=== PATIENT | male | born 1960 | race Caucasian/White ===

== ENCOUNTER 2022-02-12 06:25 | Day surgery (SDC) | payer OTHER ==
[~2022-02-12] VITALS: Ht 179.1 cm; Wt 121.0 kg
[~2022-02-12 06:25] MED LIST: ASPI-630 PO; ATOR80TA72 PO; BUDE10.22 IH; EPLE25TA4 PO; FURO40TA4 PO; HYDROmorphone 2 MG/ML INJ. IVP PRN; IBUP-1027 PO; IV RINGERS,LACTATED 1000ML 1,000 ML IV SCH; LISI20TA18 PO; MELO7.5T29 PO; METF500T16 PO; METO200T46 PO; MORPHINE SULFATE 2 MG/ML INJ. IVP PRN; PROCHLORPERAZINE 10 MG/2 ML VIAL. IVP PRN; ceFAZolin SODIUM 3 GM in IV DEXTROSE 5% 100ML 100 ML IV PRN; fentaNYL PF VIAL 100 MCG/2 ML VIAL IVP PRN
[2022-02-12] MEDS ORDERED: BUPIVACAINE MPF 0.25% 30 ML VIAL. ONE (06:58)
[2022-02-12 07:07] VITALS: BP 119/61
--- NOTE | 2022-02-12 07:10 | PDOC1 ---
History and Physical Date of Admission Date of Admission DATE: 02/12/22 TIME: 07:09 Identification/Chief Complaint Chief Complaint Right foot pain Source Source: Patient History of Present Illness History of Present Illness Mr Horta is a 61yo male with PMHx HTN, HLD, prediabetes, smokeless tobacco user, CAD s/p CABG 2017, chronic systolic CHF s/p AICD 2018 who comes to outpatient surgery for surgical resection of soft tissue mass right foot. Pain noted hard nodule on his right lateral dorsum of the and is been bothering him since November 2021 has had trouble ambulating put on shoes. No recent hospitalizations or sick contacts. He has an AICD device check within the past months being paced 20 to 22% of the time. His only other complaint is that since his bypass in 2017 he has been diagnosed with asthma and he does require Symbicort. He also notes that he had a recent hemoglobin A1c was 5.7 was told he is prediabetic started on metformin therapy. Past Medical History Cardiovascular: CAD (Stenting 2000 and CABG in 2017), CHF, HTN, Hyperlipidemia Pulmonary: Asthma Past Surgical History Past Surgical History: Pacemaker (AICD 2018 - medtronic), CABG (2017), Colon Resection (Perforated diverticulitis 1988) Family History Family History: Coronary Artery Disease Social History Smoke: # pack years (Stopped smoking in 2000 but still uses smokeless tobacco daily up to a can) ALCOHOL: none (Quit in 2000) Drugs: None Current Medications Current Medications Current Medications Fentanyl Citrate (Fentanyl 2ml Vial) 25 mcg PRN Q5MIN PRN IVP MILD PAIN 1-3; Start 02/12/22 at 06:00; Stop 02/13/22 at 05:59 Fentanyl Citrate (Fentanyl 2ml Vial) 50 mcg PRN Q5MIN PRN IVP MODERATE PAIN 4- 6; Start 02/12/22 at 06:00; Stop 02/13/22 at 05:59 Morphine Sulfate (Morphine Sulfate) 1 mg PRN Q10MIN PRN IVP SEVERE PAIN 7-10; Start 02/12/22 at 06:00; Stop 02/13/22 at 05:59 Ringer's Solution 1,000 ml @ 30 mls/hr Q24H IV ; Start 02/12/22 at 06:00; Stop 02/12/22 at 17:59 Hydromorphone HCl (Dilaudid) 0.5 mg PRN Q10MIN PRN IVP SEVERE PAIN 7-10, 2nd CHOICE; Start 02/12/22 at 06:00; Stop 02/13/22 at 05:59 Prochlorperazine Edisylate (Compazine) 5 mg PACU PRN PRN IVP NAUSEA, MRX1; Start 02/12/22 at 06:00; Stop 02/13/22 at 05:59 Cefazolin Sodium 3 gm/Dextrose 100 ml @ 200 mls/hr 1X PREOP PRN IV PRIOR TO PROCEDURE; Start 02/12/22 at 06:00; Stop 02/12/22 at 15:00 Bupivacaine HCl (Sensorcaine Mpf 0.25%) 30 ml STK-MED ONCE .ROUTE ; Start 02/12/22 at 06:58; Stop 02/12/22 at 06:58; Status DC Active Scripts Active Reported Ibuprofen 400 Mg Tablet 400 Mg PO PRN Q6HRS PRN Aspirin 81 Mg Tab.chew 81 Mg PO DAILY Eplerenone 25 Mg Tablet 25 Mg PO DAILY Metoprolol Succinate ( Xl ) (Metoprolol Succinate) 200 Mg Tab.er.24h 200 Mg PO BID Atorvastatin Calcium 80 Mg Tablet 80 Mg PO QHS Lisinopril 20 Mg Tablet 20 Mg PO DAILY Furosemide 40 Mg Tablet 40 Mg PO DAILY Metformin Hcl 500 Mg Tablet 500 Mg PO BIDWMEALS Meloxicam 7.5 Mg Tablet 7.5 Mg PO DAILY Symbicort 80-4.5 Mcg Inhaler (Budesonide/Formoterol Fumarate) 10.2 Gm Hfa.aer.ad 1 Puff IH BID Allergies Allergies: Coded Allergies: Penicillins (Verified Allergy, Intermediate, childhood, unknown reaction- tolerates cephalosporins, 02/12/22) bee venom protein (honey bee) (Verified Allergy, Intermediate, Swelling, 02/12/22) ROS General: No: Chills, Night Sweats, Fatigue, Malaise, Appetite, Other PSYCHOLOGICAL ROS: No: Anxiety, Behavioral Disorder, Concentration difficultie, Decreased libido, Depression, Disorientation, Hallucinations, Hostility, Irritablity, Memory difficulties, Mood Swings, Obsessive thoughts, Physical abuse, Sexual abuse, Sleep disturbances, Suicidal ideation, Other Eyes: No Blurry vision, No Decreased vision, No Double vision, No Dry eyes, No Excessive tearing, No Eye Pain, No Itchy Eyes, No Loss of vision, No Photophobia, No Scotomata, No Uses contacts, No Uses glasses, No Other HEENT: No: Heacaches, Visual Changes, Hearing change, Nasal congestion, Nasal discharge, Oral lesions, Sinus pain, Sore Throat, Epistaxis, Sneezing, Snoring, Tinnitus, Vertigo, Vocal changes, Other ALLERGY AND IMMUNOLOGY: No: Hives, Insect Bite Sensitivity, Itchy/Watery Eyes, Nasal Congestion, Post Nasal Drip, Seasonal Allergies, Other Hematological and Lymphatic: No: Bleeding Problems, Blood Clots, Blood Transfusions, Brusing, Night Sweats, Pallor, Swollen Lymph Nodes, Other ENDOCRINE: No: Breast Changes, Galactorrhea, Hair Pattern Changes, Hot Flashes, Malaise/lethargy, Mood Swings, Palpitations, Polydipsia/polyuria, Skin Changes, Temperature Intolerance, Unexpected Weight Changes, Other Breast: No New/Changing Breast Lumps, No Nipple changes, No Nipple discharge, No Other Respiratory: No: Cough, Hemoptysis, Orthopnea, Pleuritic Pain, Shortness of breath, SOB with excertion, Sputum Changes, Stridor, Tachypnea, Wheezing, Other Cardiovascular: No Chest Pain, No Palpitations, No Orthopnea, No Paroxysmal Noc. Dyspnea, No Edema, No Lt Headedness, No Other Gastrointestinal: No Nausea, No Vomiting, No Abdominal Pain, No Diarrhea, No Constipation, No Melena, No Hematochezia, No Other Genitourinary: No Dysuria, No Frequency, No Incontinence, No Hematuria, No Retention, No Discharge, No Urgency, No Pain, No Flank Pain, No Other, No , No , No , No , No , No , No Musculoskeletal: Yes Gait Disturbance; No Joint Pain, No Joint Stiffness, No Joint Swelling, No Muscle Pain, No Muscular Weakness, No Pain In:, No Swelling In:, No Other Neurological: No Behavorial Changes, No Bowel/Bladder ControlChng, No Confusion, No Dizziness, No Gait Disturbance, No Headaches, No Impaired Coord/balance, No Memory Loss, No Numbness/Tingling, No Seizures, No Speech Problems, No Tremors, No Visual Changes, No Weakness, No Other Skin: No Dry Skin, No Eczema, No Hair Changes, No Lumps, No Mole Changes, No Mottling, No Nail Changes, No Pruritus, No Rash, No Skin Lesion Changes, No Other, No Acne Physical Exam General: Alert, Oriented X3, Cooperative, No acute distress HEENT: Atraumatic, PERRLA, EOMI, Mucous membr. moist/pink Lungs: Clear to auscultation, Normal air movement Heart: S1S2, RRR, no thrills, no rubs, no gallops, no murmurs Abdomen: Normal bowel sounds, Soft, No tenderness, No hepatosplenomegaly, No masses Rectal Exam: not examined Extremities: No clubbing, No cyanosis, No edema, Normal pulses, Other (Right lateral 0.5 0.5 cm solid nodule on bilateral dorsal feet) Skin: No rashes, No breakdown, No significant lesion Neuro: Normal gait, Normal speech, Strength at 5/5 X4 ext, Normal tone, Sensation intact, Cranial nerves 3-12 NL, Reflexes 2+ Psych/Mental Status: Mental status NL, Mood NL Vitals Vitals Vital Signs Date Time Temp Pulse Resp B/P (MAP) Pulse Ox O2 Delivery O2 Flow Rate FiO2 02/12/22 07:07 97.8 69 20 96 97.8 02/12/22 07:05 119/61 Room Air VTE Prophylaxis Ordered VTE Prophylaxis Devices: Yes VTE Pharmacological Prophylaxi: No Assessment/Plan Assessment/Plan Right foot lesion -present significant pain and dysfunction. No further testing prior to planned procedure. HTN - on toprol and lisinopril HLD - statin Prediabetes - on metformin Smokeless tobacco user -counseled on cessation CAD s/p CABG 2017 - stable on meds, no recent hospitalizations Chronic systolic CHF s/p AICD 2018 -normal device check compliant with his meds. Asthma - new diagnosis in 2018 -takes Symbicort at home FEN - NPO PPX - SCDs FULL CODE Dispo -outpatient surgery Can call [phone] if patient requires admission to the hospital Justifications for Admission Other Justification VAISHALI BENEDICT MD February 12, 2022 07:10
[2022-02-12] MEDS ORDERED: FLUT9.9S NS (07:12)
[2022-02-12] MEDS ORDERED: INSULIN LISPRO 100 UNIT/ML 3ML VIAL for OP,RR ONLY. SQ PRN (07:15)
[2022-02-12] MEDS ORDERED: fentaNYL PF VIAL 100 MCG/2 ML VIAL ONE ×2 (07:18→08:43)
[2022-02-12] MEDS ORDERED: PROPOFOL 10 MG/ML (20ML) VIAL. IV ONE (07:19)
[2022-02-12] MEDS ORDERED: DEXAMETHASONE SOD PHOS 4 MG/ML VIAL ONE (07:19)
[2022-02-12] MEDS ORDERED: MIDAZOLAM HCL/PF 2 MG/2 ML VIAL. ONE (07:19)
[2022-02-12] MEDS ORDERED: ONDANSETRON PF 4 MG/2 ML VIAL. ONE (07:19)
[2022-02-12] MEDS ORDERED: LIDOCAINE 2% PF 5 ML VIAL. ONE (07:19)
[2022-02-12] MEDS ORDERED: ePHEDrine PF IN SALINE 50 MG/10 ML SYRINGE. IV ONE (07:51)
[2022-02-12] MEDS ORDERED: ALBUTEROL SULFATE 2.5 MG/3 ML NEBU. NEB PRN (08:00)
--- NOTE | 2022-02-12 08:28 | PDOC4 ---
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 There was no involvement of the fifth TMT or cortical insufficiency at the fifth metatarsal base. Complications: None Operative Note: Patient was brought into the operating room and placed on the operating table in a supine position. A timeout was performed to confirm patient's identity, location of surgery and procedure. After induction of general anesthesia, a pneumatic high ankle tourniquet was placed with pressure set 250 mmHg. The right lower extremity was then scrubbed, prepped and draped in the usual sterile manner. The right lower extremity was elevated for gravity exsanguination and the tourniquet was inflated to 250 mmHg. Then the attention was directed to the dorsal lateral foot over the soft tissue mass. A full-thickness, curvilinear incision was carried out overlying the soft tissue mass. The incision was carried deep with blunt dissection with care to protect and retract all the neurovascular bundles. At the level of the deep fascial layer, a well encapsulated soft tissue mass was found at the proximal fourth intermetatarsal joint and also along the peroneus tertius tendon at the insertion site. The soft tissue mass was filled with tophaceous content. Upon further debridement, the same contents was found overlying the fifth metatarsal base as well without any violation to the fifth TMT. The peroneal brevis was spared. The soft tissue mass was excised in toto and sent for pathology. The remaining tophaceous content was curetted at the fourth intermetatarsal space without violating a cortical structure or joint. The surgical site was irrigated with copious saline solution. The surgical site was closed with 4 Monocryl, 4-0 nylon. Tourniquet was deflated, adequate digital perfusion was noted. Postoperative anesthesia consisted of 10 cc of 0.25% Marcaine plain was infiltrated to the surgical site for pain control. The surgical foot was dressed with 4 x 4 gauze, soft roll and Ricardo bandage with minimal compression. Patient tolerated procedure anesthesia well with vital signs stable and neurova scular status intact. Patient was then transferred to PACU for continued recovery. Patient to be nonweightbearing while protected in the surgical shoe on the right lower extremity. SIMBA MINAYA DPM February 12, 2022 08:28
[2022-02-12] MEDS ORDERED: oxyCODONE/APAP 5/325 1 TAB TABLET PO ONE (08:30)
[2022-02-12] MEDS ORDERED: DEXTROSE 50% 25 GM / 50ML DISP.SYRIN. IV PRN (08:30)
[2022-02-12] MEDS ORDERED: ACETAMINOPHEN 325 MG TABLET. PO ONE (08:30)
[2022-02-12] MEDS ORDERED: GABAPENTIN 100 MG CAPSULE. PO ONE (08:30)
[2022-02-12] MEDS: fentaNYL PF VIAL 100 MCG/2 ML VIAL IVP PRN ×2 (08:44→09:30)
[2022-02-12 09:30] VITALS: BP 122/43
--- NOTE | 2022-02-13 17:42 | PATHOLOGY ---
[facility] Accession Number: [id number] . 01 Material submitted: . foot - RIGHT FOOT SOFT TISSUE MASS . 01 Clinical history: . PAIN RIGHT FOOT . 02 Diagnosis: Segment of dense fibroconnective, fibroadipose, and skeletal muscle tissue, right foot soft tissue mass removal: - Gouty tophus. See comment. (JPM:gas engineer; 02/13/2022) MBR 02/13/2022 1047 Local . 02 Comment: Sections of the right foot soft tissue mass reveal irregular deposits of pale basophilic crystalline material which are focally surrounded by a granulomatous inflammatory response. As this specimen is formalin fixed, no polarizable crystals are demonstrated. However, there are 2 air-dried scrape preparations of the chalky deposits. These air-dried scrape preparations reveal polarizable needle-like crystals consistent with urate crystals. 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 (JPM:gas engineer; 02/13/2022) . 02 Electronically signed: . Flex Valdez MD, Pathologist NPI- [id number] . 01 Gross description: . The specimen is received in formalin, labeled "Felipe Horta, right foot soft tissue mass". Received is an unoriented, 2.8 x 2.1 x 1.0 cm, irregularly-shaped, torres-yellow to pink, variegated, soft and , partially chalky, fibrous piece of soft tissue. The external surface is inked black and the specimen is bisected to reveal torres-white to yellow, partially chalky and partially fatty cut surfaces. A scrape prep is prepared. The specimen is entirely submitted in cassettes A1 to A2. (BenjaGG; 02/12/2022) KAREEM/KAREEM 02/12/[address] [place] [address] . 02 Pathologist provided ICD-10: M1A.9XX1 . 02 CPT . 179232 Specimen Comment: A courtesy copy of this report has been sent to [phone], [phone] Specimen Comment: [id number] Specimen Comment: Report sent to / DR ALLEN Specimen Comment: A duplicate report has been generated due to demographic updates. Performed at: 01 [facility] [address] [facility] [address], [place] [id number] MD Jeffrey Judge MD Phone: [phone] Performed at: 02 [facility] [address] [place], [place] [id number] MD Flex Valdez MD Phone: [phone]
== END 2022-02-12 10:27 | disposition home or self-care (01) ==
LOC: SURG 06:25
PROVIDERS: ATTEND Podiatrist
DX: M1A.9XX1 Chronic gout, unspecified, with tophus (tophi) (principal); I25.10 Atherosclerotic heart disease of native coronary artery without angina pectoris; E78.5 Hyperlipidemia, unspecified; I11.0 Hypertensive heart disease with heart failure; I50.22 Chronic systolic (congestive) heart failure; E11.9 Type 2 diabetes mellitus without complications; Z79.899 Other long term (current) drug therapy; Z98.890 Other specified postprocedural states; Z88.0 Allergy status to penicillin; Z88.8 Allergy status to other drugs, medicaments and biological substances
CPT/HCPCS: 28039; 82962; 94640; 97116; 97162; A4930; A6223; A6253; A6402; A6449; A6450; J1100; J2250; J2405; J2704; J3010; J3490; J7613